=== PATIENT | female | born 1955 | race Caucasian/White ===

== ENCOUNTER 2022-10-27 10:46 | Outpatient (CLI) | payer OTHER | END 2022-10-27 10:47 | disposition home or self-care (01) | LOC: CSHCT 10:46 | PROVIDERS: ATTEND Family Medicine | DX: Z12.2 Encounter for screening for malignant neoplasm of respiratory organs (principal); F17.210 Nicotine dependence, cigarettes, uncomplicated; J44.9 Chronic obstructive pulmonary disease, unspecified; E04.2 Nontoxic multinodular goiter | CPT/HCPCS: 71271 ==

== ENCOUNTER 2023-09-30 10:28 | Outpatient (CLI) | payer OTHER | END 2023-09-30 10:29 | disposition home or self-care (01) | LOC: CSHMAMMO 10:28 | PROVIDERS: ATTEND Family Medicine | DX: Z12.31 Encounter for screening mammogram for malignant neoplasm of breast (principal) | CPT/HCPCS: 77063; 77067 ==